=== PATIENT | female | born 1995 | race Caucasian/White ===

== ENCOUNTER → 2024-10-01 | Outpatient (CLI) | payer BC, SELFPAY ==
[2024-10-01 11:47] LABS: Hematocrit 34.1 % (37-47); Hemoglobin 11.6 g/dL (12.0-15.0); Mean Corpuscular Hgb 33.4 pg (27.0-32.0); Mean Corpuscular Volume 98.3 fL (81-99); Mean Platelet Vol. 9.9 fl (6.2-12.0); Platelet Count 205 K/mm3 (150-450); RBC Distribution Width CV 12.5 % (11.6-14.6); RBC Distribution Width SD 44.6 fl (35.1-43.9); Red Blood Count 3.47 M/mm3 (4.2-5.4); White Blood Count 7.1 K/mm3 (4.4-11.0)
[2024-10-01 12:58] LABS: Glucose Challenge Gest 1H 50g 122 mg/dL (70-140); Syphilis Antibodies Nonreactive (Nonreactive)
== END | disposition home or self-care (01) ==
PROVIDERS: Referring Provider Advanced Practice Midwife; Visit Provider Advanced Practice Midwife
DX: O09.92 Supervision of high risk pregnancy, unspecified, second trimester (principal); Z3A.00 Weeks of gestation of pregnancy not specified; Z13.1 Encounter for screening for diabetes mellitus
CPT/HCPCS: 36415; 82950; 85027; 86780

== ENCOUNTER 2025-01-02 08:20 | Inpatient (IN) | payer BC, SELFPAY ==
[2025-01-02] VITALS (36 sets, daily range): BP systolic 102–120; BP diastolic 57–81; PULSE 71–104; RESP 14–18; TEMP 36.3–37.7; O2SAT 81–100; BMI 21.5
[2025-01-02] MEDS: Lactated Ringers 1,000 ML 50 ML IV (08:35)
[2025-01-02 08:51] LABS: Hematocrit 41.1 % (37-47); Hemoglobin 14.1 g/dL (12.0-15.0); Immature Granulocytes Count 0.060 X10^3/uL (0.0-0.0); Mean Corp Hgb Conc 34.3 g/dL (32-36); Mean Corpuscular Volume 97.2 fL (81-99); Mean Platelet Vol. 11.3 fl (6.2-12.0); NRBC Flagged by Analyzer 0 % (0-5); Platelet Count 161 K/mm3 (150-450); RBC Distribution Width CV 13.6 % (11.6-14.6); RBC Distribution Width SD 48.6 fl (35.1-43.9); Red Blood Count 4.23 M/mm3 (4.2-5.4); White Blood Count 10.3 K/mm3 (4.4-11.0)
[2025-01-02] MEDS: Oxytocin 15 Units/NS 250ml 15 UNITS/250 ML IV.SOLN 83 UNITS IV (09:04)
--- NOTE | 2025-01-02 09:21 | OB.VAGDELI_ITS ---
Assessment & Plan (1) (spontaneous vaginal delivery): (2) Active labor: (3) Positive GBS test: Maternal Data Information Final ANA ROSA: 12/28/24 Gestational age: 40.5 Vaginal Delivery Maternal Presentation Maternal Presentation: Active Labor and Spontaneous Rupture of Membranes Vaginal Delivery Information Procedure Performed: Spontaneous Vaginal Delivery Surgeon/Practitioner: Elizabeth Bustillo Date of Procedure: 01/02/25 Pre-Procedure Diagnosis: Active labor Post-Procedure Diagnosis: Type of anesthesia: None Estimated Blood Loss: 200 Time of Delivery: 09:05 Findings Description of procedure: Presented with SROM. 8 cm/90/+1. Quickly progressed to completed and delivered over an intact perineum. LUNA with a loose cord around the neck. The shoulders delivered easily, followed by the rest of the body and the infant was placed on the maternal abdomen. The cried upon delivery. The cord was clamped and cut. The placenta delivered spontaneously. There were no lacerations. All sponge and instrument counts were correct. Presentation: Vertex and LUNA Amniotic Membrane Rupture Type: Spontaneous Amniotic Fluid Description: Clear Placental Delivery Description: Spontaneous Placenta Disposition: [facility] Specimen collected: No Cord Vessel Description: 3 Vessels Cord Entanglement: Around neck x 1, loose Nuchal Cord Compression: Without compression Infant A Gender: Female (1 minute): 8 (5 minute): 9 Delayed Cord Clamping: Yes Endoscopy Nurse steward/stewardess economy class: No Post Vaginal Deli Medications given after delivery: IV Pitocin and IM Pitocin Episiotomy Description: None Laceration: None Complication Complications: No
--- NOTE | 2025-01-02 09:21 | PCM.HP.OB ---
HPI - General General Date of Admission: 01/02/25 Date of Service: 01/02/25 Chief Complaint: labor HPI Narrative LEONARDA HASKINS, is a 29 F who presents in active labor at 8 cm with SROM at 0600. GBS positive. Desires no epidural Maternal Data Information Final ANA ROSA: 12/28/24 Gestational age: 40.5 PFSH PFSH Home Medications ?Medication ?Instructions ?Recorded ?Last Taken ?Type vit no.95-ferrous 1 tab PO DAILY 01/02/25 Unknown History fumarate 28 mg-folic acid 800 mcg tablet () Allergy/AdvReac Type Severity Reaction Status Date / Time No Known Allergies Allergy Verified 01/02/25 09:28 History 4 Elective abortions Hx Para 1 Spontaneous abortions Hx # Term Pregnancies Ectopic pregnancies Hx # Pregnancies Multiple births # of living children NST FHR Rate Baby A Baseline: 150 Variability:: Moderate Accelerations:: 15 x 15 Decelerations:: None FHR Category:: Category I FHR Rate Baby B Baseline: q 3 ROS Constitutional Constitutional: Denies fatigue, fever(s) or malaise Eyes Eyes: Denies change in vision ENT HEENT: Denies dizziness or headache(s) Cardiovascular Cardiovascular: Denies chest pain, dyspnea or lightheadedness Respiratory/Chest Respiratory/Chest: Denies cough or dyspnea Gastrointestinal Gastrointestinal: Denies change in bowel habits Genitourinary Genitourinary: Denies burning urination or genital lesions Integumentary Integumentary: Denies rash Neurologic Neurologic: Denies confusion, dizziness, headache(s), numbness or weakness Vital Signs Vital Signs Vital Signs: 01/02/25 08:32 01/02/25 08:32 01/02/25 08:34 Pulse Rate 102 H 104 H Blood Pressure BP Systolic BP Diastolic Pulse Ox 100 01/02/25 08:34 01/02/25 09:19 01/02/25 09:19 Pulse Rate 94 Blood Pressure 112/81 H BP Systolic 112 BP Diastolic 81 Pulse Ox 81 Labs Labs Labs: Blood Type Pending Antibody Screen Pending Hct 41.1 % (37-47) Hgb 14.1 g/dL (12.0-15.0) Syphilis Total Ab Nonreactive (Nonreactive) Glucose 1 Hr 50 gm 122 mg/dL (70-140) Assessment & Plan (1) SROM (spontaneous rupture of membranes): (2) Positive GBS test: (3) Active labor: PLAN: Plan Admit for labor
[2025-01-02 09:26] LABS: Syphilis Antibodies Nonreactive (Nonreactive)
[2025-01-02] MEDS: Senna/Docusate Sodium 1 Tablet PO (19:02)
[2025-01-03 03:30] VITALS: BP 109/70; PULSE 58; RESP 16; TEMP 36.4; O2SAT 98
--- NOTE | 2025-01-03 06:49 | PCM.PN.OB ---
Subjective Subjective Doing well. Ambulating and voiding without difficulty. Mild lochia. Breast feeding. Currently sleeping Objective Data Objective Data Vital Signs: Vital Signs Temp Pulse Resp BP Pulse Ox O2 Del Method 97.5 F L 58 L 16 109/70 98 Room Air 01/03/25 03:30 01/03/25 03:30 01/03/25 03:30 01/03/25 03:30 01/03/25 03:30 01/03/25 03:30 Oxygen Delivery Method Room Air Weight: 68.039 kg Body Mass Index (BMI) 21.5 Intake & Output: Intake and Output for Last 24 Hours 01/01/25 01/02/25 01/03/25 23:59 23:59 23:59 Intake Total 206.22 / 206.22 Output Total 1200 / 1200 Balance -993.78 / -993.78 Lab / Micro Data 01/02/25 08:30 Labs: Laboratory Results - last 24 hr 01/02/25 08:30: WBC 10.3, RBC 4.23, Hgb 14.1, Hct 41.1, MCV 97.2, MCH 33.3 H, MCHC 34.3, RDW Std Deviation 48.6 H, RDW Coeff of Brett 13.6, Plt Count 161, MPV 11.3, Immature Gran % (Auto) 0.600, Neut % (Auto) 76.9 H, Lymph % (Auto) 15.7 L, [place] % (Auto) 5.5, Eos % (Auto) 1.1, Baso % (Auto) 0.2, Absolute Neuts (auto) 7.9 H, Absolute Lymphs (auto) 1.62, Nucleated RBC % 0, Syphilis Total Ab Nonreactive, Blood Type A POSITIVE, Antibody Screen NEGATIVE ROS Constitutional Constitutional: Denies headache(s) Cardiovascular Cardiovascular: Denies chest pain or dyspnea Gastrointestinal Gastrointestinal: Denies nausea or vomiting Genitourinary Genitourinary: Denies dysuria Physical Exam Const alert and no apparent distress General Appearance: cooperative and comfortable Eyes PERRL and EOMs intact bilaterally Resp normal respiratory effort GI soft to palpation and non-tender Uterus Palpation: uterus fundus firm ( below umbilicus) Extremity normal to inspection and full ROM Neuro oriented x3 and CN's II-XII intact bilaterally Psych mental status grossly normal Assessment & Plan (1) (spontaneous vaginal delivery): (2) Positive GBS test: PLAN: Untreated at delivery. 36 hour observation PLAN: Plan Discharge tomorrow
[2025-01-03 08:35] VITALS: BP 113/75; PULSE 76; RESP 18; TEMP 36.9; O2SAT 97
[2025-01-03 13:30] VITALS: BP 105/64; PULSE 86; RESP 14; TEMP 36.8; O2SAT 99
[2025-01-03] MEDS: Senna/Docusate Sodium 1 Tablet PO (19:48)
[2025-01-03 19:55] VITALS: BP 105/67; PULSE 78; RESP 16; TEMP 36.7; O2SAT 98
[2025-01-04 02:12] VITALS: BP 109/72; PULSE 68; RESP 16; TEMP 37; O2SAT 97
[2025-01-04 09:20] VITALS: BP 114/82; PULSE 107; RESP 16; TEMP 36.5; O2SAT 100
--- NOTE | 2025-01-04 10:05 | PCM.PN.OB ---
Subjective Subjective Doing well per patient and nursing staff. Ambulating and taking PO without difficulty. Voiding and passing flatus. Pain controlled. , services for assistance. Denies headache, visual changes, chest pain, shortness of breath, leg pain or increased bleeding. Lochia normal. Objective Data Objective Data Vital Signs: Vital Signs Temp Pulse Resp BP Pulse Ox O2 Del Method 97.7 F L 107 H 16 114/82 H 100 Room Air 01/04/25 09:20 01/04/25 09:20 01/04/25 09:20 01/04/25 09:20 01/04/25 09:20 01/04/25 09:20 Oxygen Delivery Method Room Air Weight: 150 lb Body Mass Index (BMI) 21.5 Intake & Output: Intake and Output for Last 24 Hours 01/02/25 01/03/25 01/04/25 23:59 23:59 23:59 Intake Total 206.22 / 206.22 Output Total 1200 / 1200 Balance -993.78 / -993.78 Lab / Micro Data 01/02/25 08:30 ROS Constitutional Constitutional: Reports systems reviewed and no addt'l complaints, except as documented; Denies headache(s) Eyes Eyes: Denies acute decrease in peripheral vision, blurry vision or change in vision ENT HEENT: Reports systems reviewed and no addt'l complaints, except as documented Cardiovascular Cardiovascular: Denies chest pain or dizziness Respiratory/Chest Respiratory/Chest: Denies cough, dyspnea, dyspnea on exertion, shortness of breath at rest or shortness of breath with exertion Gastrointestinal Gastrointestinal: Denies abdominal pain, diarrhea, nausea or vomiting Genitourinary Genitourinary: Denies abdominal discomfort Musculoskeletal Musculoskeletal: Denies limited range of motion Integumentary Integumentary: Reports systems reviewed and no addt'l complaints, except as documented Neurologic Neurologic: Reports systems reviewed and no addt'l complaints, except as documented Psychiatric Psychiatric: Reports systems reviewed and no addt'l complaints, except as documented Endocrine Endocrinology: Reports systems reviewed and no addt'l complaints, except as documented Hematologic/Lymphatic Hematologic/Lymphatic: Reports systems reviewed and no addt'l complaints, except as documented Allergic/Immunologic Allergic/Immunologic: Reports systems reviewed and no addt'l complaints, except as documented Physical Exam Const alert and oriented x3 General Appearance: cooperative Orientation / Consciousness: awake, oriented to person, oriented to place and oriented to time Exam Limitations: no limitations HEENT normocephalic Head and Scalp: normal to inspection, normocephalic and atraumatic Face and Sinus: normal facial exam Eyes General Eye: normal appearance of both eyes Neck full ROM Chest Chest: symmetrical chest wall rise Resp normal respiratory effort and normal air movement Auscultation: clear to auscultation bilaterally Cardio regular rate, regular rhythm, S1 normal heart sound, S2 normal heart sound, no murmurs, no rub, no gallops and no clicks GI normal to inspection, nondistended, normoactive bowel sounds and non-tender GI Narrative: Fundus firm 2 below U Bladder / Kidney Exam: no CVA tenderness Back/Spine normal ROM Extremity normal to inspection and full ROM Skin no rashes or lesions noted Neuro oriented x3, CN's II-XII intact bilaterally and moves all extremities Sensorium / Orientation: awake, alert and oriented to person Motor Exam: clonus absent Deep Tendon Reflexes: Rt Patellar (L4): 2+ and Lt Patellar (L4): 2+ Assessment & Plan (1) (spontaneous vaginal delivery): (2) Lactating mother: PLAN: Plan 1) Routine care, PPD #2 2) Vitals signs stable 3) Pain controlled 4) , services PRN 5) D/C home 6) Follow up in 2 weeks and 6 weeks
--- NOTE | 2025-01-04 10:06 | PCM.DC.SUM ---
Providers Date of Admission: 01/02/25 Primary Care Physician: Idalmis Primary Care Phys Reason For Visit: VAGINAL DELIVERY Diagnosis Discharge Diagnosis (1) (spontaneous vaginal delivery): Status: Acute Code(s): O80 - Encounter for full-term uncomplicated delivery (2) Lactating mother: Status: Acute Code(s): Z39.1 - Encounter for care and examination of lactating mother Plan 1) Routine care, PPD #2 2) Vitals signs stable 3) Pain controlled 4) , services PRN 5) D/C home 6) Follow up in 2 weeks and 6 weeks Medications at Discharge Home Medications vit no.95-ferrous fumarate 28 mg-folic acid 800 mcg tablet () 1 tab PO DAILY 01/02/25 acetaminophen 500 mg tablet 1,000 mg (2 x 500 mg) PO Q6H PRN PRN Pain 1-10 Or Fever #0 tabs 01/04/25 ibuprofen 600 mg tablet 600 mg PO Q6H PRN PRN Pain Score 1-10 #0 tabs 01/04/25 Hospital Course Summary of Care Provided Minutes Spent on Discharge: 15 Weight / BMI Weight Weight: 150 lb Body Mass Index (BMI) 21.5 ABG / Lab / Microbiology Data 01/02/25 08:30 D/C Instructions Discharge Activity: Return to Normal Activity, May Drive, May Shower and May Take a Tub Bath May resume sexual activity in: 6 weeks Weight Bearing Status: Full weight bearing Call your doctor if you observe: Fever of 101 or Higher, Inability to urinate, Using more than 1 pad per hour, Shortness of breath, Chest pain, Increased palpitations (irregular heartbeat), Calf discomfort and Uncontrolled pain DC O2, CPAP, BIPAP Needs Home O2 Discharge instructions: No Please Follow Up With: Alyssia Partida CNM When: 2 week virtual visit and 6 week visit Meaningful Use Info Meaningful Use Meaningful Use Diagnoses (Choose all that apply): None applicable Discharge Plan Admission Admit Date/Time: 01/02/25 08:20 Primary Reason for Your Visit: Vaginal Delivery Attending Provider: Elizabeth Bustillo Primary Care Provider: Care Physician,No Primary Discharge Orders/Prescriptions Prescriptions: New acetaminophen 500 mg Tablet 1,000 mg PO Q6H PRN PRN (Reason: Pain 1-10 Or Fever) Qty: 0 0RF ibuprofen 600 mg Tablet 600 mg PO Q6H PRN PRN (Reason: Pain Score 1-10) Qty: 0 0RF Continued PNV no.95-ferrous fumarate-FA [] 28 mg iron- 800 mcg tablet 1 tab PO DAILY Referrals / Follow Up: Care Physician,No Primary [Primary Care Provider] - Disposition Disposition (needs filled in before D/C Order can be placed): Home, Self Care
--- NOTE | 2025-01-10 13:32 | NURSING ---
F/Up questions asked at IBCLC visit on 01/09 at 1230. has been nursing, but still needing supplemented d/t low transfer at breast. Feeling okay overall, a little overwhelmed with feeding, but states she is comfortable with the plan. Returning 01/16 for follow up visit.
== END 2025-01-04 11:13 | disposition home or self-care (01) | DRG 807 ==
LOC: WPOUT 08:22 → WP 08:22 → WPOUT 08:31 → WP 08:31
PROVIDERS: Admitting Provider Obstetrics & Gynecology; Referring Provider Obstetrics & Gynecology; Visit Provider Obstetrics & Gynecology
DX: O98.82 Other maternal infectious and parasitic diseases complicating childbirth (principal); Z37.0 Single live birth; B95.1 Streptococcus, group B, as the cause of diseases classified elsewhere; N96 Recurrent pregnancy loss; O69.81X0 Labor and delivery complicated by cord around neck, without compression, not applicable or unspecified; Z3A.40 40 weeks gestation of pregnancy; O99.893 Other specified diseases and conditions complicating puerperium
CPT/HCPCS: 59025; 59050; 85025; 86780; 86850; 86900; 86901; 99221; G0378